=== PATIENT | female | born 1980 | race Two or more races ===

== ENCOUNTER 2021-03-01 01:39 | Emergency (ER) | payer OTHER, MEDICAID ==
[~2021-03-01] VITALS: Ht 170.2 cm; Wt 104.3 kg
[2021-03-01] MEDS ORDERED: LORazepam 2MG/ML-1ML VIAL ONE (02:39)
[2021-03-01] MEDS ORDERED: LORazepam 2MG/ML-1ML VIAL IM ONE (02:45)
[2021-03-01 07:38] LABS: Beta HCG, Quantitative < 1 mlU/mL (1-3); Thyroid Stimulating Hormone 0.65 uIU/mL (0.358-3.74)
[2021-03-01] MEDS ORDERED: OLANZapine 5 MG TAB PO ONE (07:45)
[2021-03-01 09:46] LABS: Urine Bacteria FEW /hpf (None Seen); Urine Blood Negative /uL (Negative); Urine WBC 12 /hpf (0 - 5)
[2021-03-01 10:48] LABS: Alcohol, Urine < 3.0 mg/dL (0-10); Amphetamine Screen, Urine NEGATIVE (NEGATIVE); Barbiturate Scree,Urine NEGATIVE (NEGATIVE); Benzodiazephine Screen, Urine NEGATIVE (NEGATIVE); Cannabinoid Screen, Urine NEGATIVE (NEGATIVE); Cocaine Screen, Urine NEGATIVE (NEGATIVE); Opiate Scree,Urine NEGATIVE (NEGATIVE); Phencyclidine Screen, Urine POSITIVE (NEGATIVE)
[2021-03-01 13:43] LABS: Hematocrit 39.9 % (36.0-46.0); Hemoglobin 12.7 g/dL (12.2-16.2); Mean Corpuscular Hemoglobin 24.8 pg (28.0-32.0); Mean Corpuscular Hgb Conc. 31.7 g/dL (32.0-36.0); Mean Corpuscular Volume 78.3 fL (80.0-100.0); Red Blood Cells 5.09 10^6/uL (4.0-5.20); Red Cell Distribution Width 17.4 % (11.8-14.3); White Blood Cell 10.4 10^3/uL (4.4-10.8)
[2021-03-01 13:45] LABS: Albumin 2.9 g/dL (3.4-5.0); Calcium 8.7 mg/dL (8.5-10.1); Potassium 4.1 mmol/L (3.5-5.1)
[2021-03-01 13:46] LABS: Basophils % (manual) 0 (0.0-2.0); Blast Cells 0; Metamyelocytes % 0; Myelocytes % 0; Promyelocytes % 0; Reactive Lymphocytes 0
[2021-03-01 13:48] LABS: BUN/Creatinine Ratio 15.7; Bilirubin, Total 0.5 mg/dL (0.2-1.0); Total Protein 8.2 g/dL (6.4-8.2)
[2021-03-01 15:01] LABS: Band Neutrophils % (manual) 1; Eosinophils % (manual) 1 (0-7); Lymphocytes % (manual) 33 (10.0-50.0); Monocytes % (manual) 17 (0-12)
[2021-03-02] MEDS ORDERED: risperiDONE 1 MG TAB PO ONE (10:00)
[2021-03-02 19:35] VITALS: BP 108/60
== END 2021-03-02 20:25 | disposition short-term general hospital (02) ==
LOC: ER 01:39 → EDBD 01:39 → ER 03-02 20:25
DX: F20.9 Schizophrenia, unspecified (principal); F31.9 Bipolar disorder, unspecified; E11.9 Type 2 diabetes mellitus without complications; I10 Essential (primary) hypertension; Z20.822 Contact with and (suspected) exposure to COVID-19
CPT/HCPCS: 36415; 71046; 80053; 80307; 81001; 82962; 84443; 84702; 85007; 85027; 87426; 93005; 96372; 99285; J2060

== ENCOUNTER 2021-03-29 19:51 | Emergency (ER) | payer OTHER, MEDICAID ==
[~2021-03-29] VITALS: Ht 167.6 cm; Wt 113.4 kg
[2021-03-29 22:04] LABS: Eosinophils # (auto) 0.1 10 ^3/uL (0-0.8); Monocytes % (auto) 16.8 % (0.0-12.0); Nucleated Red Blood Cells % 0.1 %
[2021-03-29 22:07] LABS: Basophils # (auto) 0.1 10 ^3/uL (0-0.2); Basophils % (auto) 1.2 % (0.0-2.0); Eosinophils % (auto) 1.4 % (0.0-7.0); Hematocrit 32.1 % (36.0-46.0); Hemoglobin 10.3 g/dL (12.2-16.2); Lymphocytes # (auto) 1.8 10 ^3/uL (0.4-5.4); Lymphocytes % (auto) 20.9 % (10.0-50.0); Mean Corpuscular Hemoglobin 25.2 pg (28.0-32.0); Mean Corpuscular Volume 78.7 fL (80.0-100.0); Monocytes # (auto) 1.4 10 ^3/uL (0-1.3); Neutrophils # (auto) 5.1 10 ^3/uL (1.6-8.6); Neutrophils % (auto) 59.7 % (37.0-80.0); Platelet Count (auto) 423 10^3/uL (140-450); Red Blood Cells 4.08 10^6/uL (4.0-5.20); Red Cell Distribution Width 17.8 % (11.8-14.3); White Blood Cell 8.5 10^3/uL (4.4-10.8)
[2021-03-29 22:24] LABS: Albumin 2.9 g/dL (3.4-5.0); BUN/Creatinine Ratio 11.2; Calcium 8.6 mg/dL (8.5-10.1); Potassium 3.7 mmol/L (3.5-5.1)
[2021-03-29 22:28] LABS: INR 1.01 (0.9-1.15); Partial Thromboplastin Time 30.4 sec (23.0-31.2)
[2021-03-29 22:33] LABS: Bilirubin, Total 0.5 mg/dL (0.2-1.0); Total Protein 8.2 g/dL (6.4-8.2)
[2021-03-30 00:05] LABS: Urine Bacteria FEW /hpf (None Seen); Urine Blood 2+ /uL (Negative); Urine Mucus FEW (None Seen); Urine Specific Gravity 1.016 (1.001-1.035); Urine WBC 4 /hpf (0 - 5)
[2021-03-30] MEDS ORDERED: ASPirin 325 MG TAB PO ONE (01:15)
[2021-03-30] MEDS ORDERED: IOHEXOL 350 MG/ML 100ML IJ ONE (03:10)
[2021-03-30 12:51] VITALS: BP 139/70
== END 2021-03-30 13:15 | disposition short-term general hospital (02) ==
LOC: EDBD 19:51 → ER 19:55
DX: G45.9 Transient cerebral ischemic attack, unspecified (principal); F17.210 Nicotine dependence, cigarettes, uncomplicated; F12.10 Cannabis abuse, uncomplicated; E11.9 Type 2 diabetes mellitus without complications; I10 Essential (primary) hypertension; R42 Dizziness and giddiness; Z32.02 Encounter for pregnancy test, result negative; Z20.822 Contact with and (suspected) exposure to COVID-19
CPT/HCPCS: 36415; 70450; 70496; 71045; 80053; 81001; 81025; 82962; 84484; 84702; 85025; 85610; 85730; 87426; 93005; 99285; Q9967

== ENCOUNTER 2021-11-21 18:15 | Emergency (ER) | payer OTHER, MEDICAID ==
[~2021-11-21] VITALS: Ht 177.8 cm; Wt 102.1 kg
[2021-11-21 18:40] VITALS: BP 162/104
== END 2021-11-21 20:26 | disposition home or self-care (01) ==
LOC: EDBD 18:15 → ER 18:15
DX: R41.82 Altered mental status, unspecified (principal); E11.9 Type 2 diabetes mellitus without complications; I10 Essential (primary) hypertension; F17.210 Nicotine dependence, cigarettes, uncomplicated; F12.10 Cannabis abuse, uncomplicated; Z86.73 Personal history of transient ischemic attack (TIA), and cerebral infarction without residual deficits